=== PATIENT | male | born 2000 | race Asian ===

== ENCOUNTER 2020-05-24 20:27 | Emergency (ER) | payer OTHER ==
[~2020-05-24] VITALS: Ht 177.8 cm; Wt 56.7 kg
[2020-05-24 20:36] VITALS: BP 110/63
--- NOTE | 2020-05-24 20:50 | NUR ---
19 Y/O MALE PRESENTS TO ER S/P SLIP AND FALL IN KITCHEN. PT STATES HE SLIPPED IN WATER ON KITCHEN FLOOR, AND HIT LEFT SIDE OF HEAD, AND JAW AREA. PT DENIES LOC, VISION CHANGES, NAUSEA, VOMITING, SPEECH/AUDITORY CHANGES. WHEN INCIDENT HAPPENED PAIN WAS 8/10. PT NOW RATES PAIN 3/10. VSS, R/R EQUAL, AND UNLABORED. CAP REFILL <3 SEC. PERRLA, BRISK, BILAT PUPIL AT 3CM. 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 PT HAS 1 CM RED BLOTCH ON LEFT ANTERIOR SIDE OF SCALP. SIDE RAIL X2, BED IN LOW POSIITON, HOB ELEVATED. WILL CONTINUE TO MONITOR. PMH: SEASONAL ALLERGIES ALLERGY: SEAFOOD, GRASS/WEEDS
--- NOTE | 2020-05-24 21:46 | NUR ---
PT RESTING QUIETLY IN BED. STATES HIS PAIN IS AT 2/10. VSS, R/R EQUAL, AND UNLABORED. SIDE RAIL X2, BED IN LOW POSITION, WILL CONTINUE TO MONITOR.
[2020-05-24] MEDS ORDERED: ACETAMINOPHEN 325 MG TAB PO ONE (22:10)
[2020-05-24 22:25] VITALS: BP 110/63
== END 2020-05-24 22:23 | disposition home or self-care (01) ==
LOC: MED 20:27
DX: S06.0X9A Concussion with loss of consciousness of unspecified duration, initial encounter (principal); W01.190A Fall on same level from slipping, tripping and stumbling with subsequent striking against furniture, initial encounter; Y93.G3 Activity, cooking and baking; Y92.89 Other specified places as the place of occurrence of the external cause; Y99.8 Other external cause status
CPT/HCPCS: 99282